=== PATIENT | female | born 1965 | race Two or more races ===

== ENCOUNTER 2022-08-15 15:18 | Inpatient (IN) | payer MEDICAID ==
[~2022-08-15] VITALS: Ht 160 cm; Wt 61.8 kg
[2022-08-15] MEDS ORDERED: ASPirin 325 MG TAB PO ONE (15:30)
[2022-08-15 15:50] LABS: Urine Bacteria FEW /hpf (None Seen); Urine Blood 3+ /uL (Negative); Urine Hyaline Cast FEW /lpf (0 - 2); Urine Mucus FEW (None Seen); Urine Specific Gravity 1.022 (1.001-1.035); Urine WBC 63 /hpf (0 - 5)
[2022-08-15 15:54] LABS: Albumin 4.2 g/dL (3.4-5.0); INR 1.03 (0.9-1.15); Partial Thromboplastin Time 31.7 sec (24.6-33.4); Potassium 3.7 mmol/L (3.5-5.1)
[2022-08-15 15:57] LABS: BUN/Creatinine Ratio 12.2; Total Protein 7.7 g/dL (6.4-8.2)
[2022-08-15 16:19] LABS: Basophils # (auto) 0.1 10 ^3/uL (0-0.2); Basophils % (auto) 0.7 % (0.0-2.0); Eosinophils # (auto) 0 10 ^3/uL (0-0.8); Eosinophils % (auto) 0.4 % (0.0-7.0); Hematocrit 41.5 % (36.0-46.0); Hemoglobin 13.8 g/dL (12.2-16.2); Lymphocytes # (auto) 2.8 10 ^3/uL (0.4-5.4); Lymphocytes % (auto) 37.1 % (10.0-50.0); Mean Corpuscular Hemoglobin 28.5 pg (28.0-32.0); Mean Corpuscular Hgb Conc. 33.4 g/dL (32.0-36.0); Mean Corpuscular Volume 85.4 fL (80.0-100.0); Monocytes # (auto) 0.5 10 ^3/uL (0-1.3); Monocytes % (auto) 7.2 % (0.0-12.0); Neutrophils # (auto) 4.1 10 ^3/uL (1.6-8.6); Neutrophils % (auto) 54.6 % (37.0-80.0); Nucleated Red Blood Cells % 0.1 %; Red Blood Cells 4.86 10^6/uL (4.0-5.20); Red Cell Distribution Width 13.8 % (11.8-14.3); White Blood Cell 7.6 10^3/uL (4.4-10.8)
[2022-08-15] MEDS ORDERED: NITROGLYCERIN 0.4 MG SL TAB SL ONE (16:45)
[2022-08-15] MEDS ORDERED: MORPHINE SULFATE INJ 2 MG/ml SYRG IV ONE (17:30)
[2022-08-15] MEDS ORDERED: ONDANSETRON HCL 4 MG/2 ML VIAL IV ONE (17:30)
[2022-08-15] MEDS ORDERED: IOHEXOL 350 MG/ML 100ML IJ ONE (17:37)
[2022-08-15] MEDS ORDERED: MORPHINE SULFATE 4 MG/ML SYR/VIAL IV PRN (20:30)
[2022-08-15] MEDS ORDERED: ACETAMINOPHEN 325 MG TAB PO PRN (20:30)
[2022-08-15] MEDS ORDERED: ATORVASTATIN 20 MG TAB PO ONE (20:30)
[2022-08-15] MEDS ORDERED: NITROGLYCERIN 0.4 MG SL TAB SL PRN ×2 (20:30)
[2022-08-15] MEDS: MORPHINE SULFATE INJ 2 MG/ml SYRG IV PRN (21:02)
[2022-08-15] MEDS ORDERED: METOPROLOL TARTRATE 25 MG TAB PO SCH (22:00)
[2022-08-15] MEDS: ENOXAPARIN SOD 60 MG/0.6 ML SYRINGE SC SCH (22:46)
[2022-08-16] MEDS: ACETAMINOPHEN 325 MG TAB PO PRN (02:34)
[2022-08-16 05:29] LABS: Basophils # (auto) 0 10 ^3/uL (0-0.2); Basophils % (auto) 0.5 % (0.0-2.0); Eosinophils # (auto) 0 10 ^3/uL (0-0.8); Eosinophils % (auto) 0.7 % (0.0-7.0); Hematocrit 36.7 % (36.0-46.0); Hemoglobin 12.3 g/dL (12.2-16.2); Lymphocytes % (auto) 32.2 % (10.0-50.0); Mean Corpuscular Hemoglobin 28.8 pg (28.0-32.0); Mean Corpuscular Hgb Conc. 33.7 g/dL (32.0-36.0); Mean Corpuscular Volume 85.5 fL (80.0-100.0); Monocytes # (auto) 0.6 10 ^3/uL (0-1.3); Monocytes % (auto) 9.4 % (0.0-12.0); Neutrophils # (auto) 3.5 10 ^3/uL (1.6-8.6); Neutrophils % (auto) 57.2 % (37.0-80.0); Red Blood Cells 4.29 10^6/uL (4.0-5.20); Red Cell Distribution Width 13.8 % (11.8-14.3); White Blood Cell 6.2 10^3/uL (4.4-10.8)
[2022-08-16] MEDS ORDERED: MORPHINE SULFATE 4 MG/ML SYR/VIAL ONE (05:45)
[2022-08-16 05:48] LABS: Albumin 3.5 g/dL (3.4-5.0); Calcium 8.6 mg/dL (8.5-10.1); Magnesium 1.9 mg/dL (1.6-2.6); Potassium 3.4 mmol/L (3.5-5.1)
[2022-08-16] MEDS: MORPHINE SULFATE INJ 2 MG/ml SYRG IV PRN ×2 (05:49→15:11)
[2022-08-16 05:52] LABS: BUN/Creatinine Ratio 14.3; Bilirubin, Total 1.2 mg/dL (0.2-1.0); Total Protein 6.7 g/dL (6.4-8.2)
[2022-08-16] MEDS: ENOXAPARIN SOD 60 MG/0.6 ML SYRINGE SC SCH (09:21)
[2022-08-16] MEDS: cefTRIAXone 1GM/50ML D5W 50 ML IV SCH (09:21)
[2022-08-16] MEDS ORDERED: POTASSIUM CHL 20 Meq TABLET PO ONE (09:30)
[2022-08-16] MEDS ORDERED: MAGNESIUM OXIDE 400 MG TAB PO ONE (09:30)
[2022-08-16] MEDS: LISINOPRIL 5 MG TAB PO SCH (09:44)
[2022-08-16] MEDS: DOCUSATE SOD 100 MG CAP PO SCH (10:00)
[2022-08-16] MEDS ORDERED: ASPirin 325 MG TAB PO SCH (10:00)
[2022-08-16] MEDS: ENOXAPARIN SOD 40 MG/0.4 ML SYRINGE SC SCH (10:07)
[2022-08-16] MEDS: HYDROcodone-ACET 5/325MG TAB PO PRN (21:15)
[2022-08-17] VITALS (7 sets, daily range): BP systolic 138–156; BP diastolic 54–87
[2022-08-17] MEDS: ATORVASTATIN 20 MG TAB PO SCH ×2 (00:12→21:18)
[2022-08-17] MEDS: ACETAMINOPHEN 325 MG TAB PO PRN ×2 (00:20→09:59)
[2022-08-17] MEDS: HYDROcodone-ACET 5/325MG TAB PO PRN ×4 (05:06→22:49)
[2022-08-17] MEDS ORDERED: ADENOSINE 52 MG in GIVE UN-DILUTED 0 ML IV STA (07:31)
[2022-08-17] MEDS: cefTRIAXone 1GM/50ML D5W 50 ML IV SCH (09:00)
[2022-08-17] MEDS: ENOXAPARIN SOD 40 MG/0.4 ML SYRINGE SC SCH (09:58)
[2022-08-17] MEDS: DOCUSATE SOD 100 MG CAP PO SCH (09:58)
[2022-08-17] MEDS: ASPirin 81 mg TAB PO SCH (09:58)
[2022-08-17] MEDS: LISINOPRIL 5 MG TAB PO SCH (09:59)
[2022-08-17] MEDS ORDERED: diphenhdrAMINE HCL 50 MG/1 ML VL IV ONE (11:45)
[2022-08-17] MEDS ORDERED: MAGNESIUM OXIDE 400 MG TAB PO ONE (14:00)
[2022-08-17] MEDS ORDERED: POTASSIUM CHL 20 Meq TABLET PO ONE (14:00)
[2022-08-17] MEDS ORDERED: diphenhdrAMINE HCL 50 MG/1 ML VL IV PRN (14:00)
[2022-08-18 05:00] VITALS: BP 145/75
[2022-08-18 05:36] LABS: Basophils # (auto) 0 10 ^3/uL (0-0.2); Basophils % (auto) 0.2 % (0.0-2.0); Eosinophils # (auto) 0 10 ^3/uL (0-0.8); Eosinophils % (auto) 0.2 % (0.0-7.0); Hematocrit 42.7 % (36.0-46.0); Lymphocytes # (auto) 0.7 10 ^3/uL (0.4-5.4); Lymphocytes % (auto) 9.5 % (10.0-50.0); Mean Corpuscular Hemoglobin 28.1 pg (28.0-32.0); Mean Corpuscular Hgb Conc. 32.7 g/dL (32.0-36.0); Monocytes # (auto) 0.5 10 ^3/uL (0-1.3); Neutrophils # (auto) 6.1 10 ^3/uL (1.6-8.6); Neutrophils % (auto) 83.1 % (37.0-80.0); Nucleated Red Blood Cells % 0.4 %; Red Blood Cells 4.97 10^6/uL (4.0-5.20); White Blood Cell 7.4 10^3/uL (4.4-10.8)
[2022-08-18 06:00] LABS: BUN/Creatinine Ratio 22.7; Calcium 8.8 mg/dL (8.5-10.1); Potassium 4.1 mmol/L (3.5-5.1)
[2022-08-18] MEDS: HYDROcodone-ACET 5/325MG TAB PO PRN (06:09)
[2022-08-18 07:17] LABS: Partial Thromboplastin Time 29.3 sec (24.6-33.4)
[2022-08-18 09:00] VITALS: BP 158/66
[2022-08-18] MEDS: ASPirin 81 mg TAB PO SCH (09:47)
[2022-08-18] MEDS: cefTRIAXone 1GM/50ML D5W 50 ML IV SCH (09:47)
[2022-08-18] MEDS: ENOXAPARIN SOD 40 MG/0.4 ML SYRINGE SC SCH (09:48)
[2022-08-18] MEDS: LISINOPRIL 5 MG TAB PO SCH (09:48)
[2022-08-18] MEDS: DOCUSATE SOD 100 MG CAP PO SCH (09:49)
[2022-08-18] MEDS ORDERED: MORPHINE SULFATE INJ 2 MG/ml SYRG IV ONE (12:00)
[2022-08-18 13:00] VITALS: BP 130/71
[2022-08-18 16:32] VITALS: BP 141/69
[2022-08-18] MEDS ORDERED: ASPI-325 PO (18:14)
[2022-08-18] MEDS ORDERED: ATOR20TA50 PO (18:14)
[2022-08-18] MEDS ORDERED: LISI-275 PO (18:14)
[2022-08-18] MEDS ORDERED: GABA300C10 PO (18:20)
[2022-08-18] MEDS ORDERED: VALA1TAB34 PO (18:20)
[2022-08-18 18:30] VITALS: BP 158/66
[2022-08-18] MEDS ORDERED: GABAPENTIN 300 MG CAP PO ONE (18:30)
== END 2022-08-18 21:03 | disposition home health service (06) | DRG 198 ==
LOC: ER 15:18 → TELE 20:31 → TELE-WESTW 08-16 23:31
PROVIDERS: ADMIT Nurse Practitioner Family; ATTEND Internal Medicine
DX: R07.89 Other chest pain (principal); I25.10 Atherosclerotic heart disease of native coronary artery without angina pectoris; B02.9 Zoster without complications; I10 Essential (primary) hypertension; N39.0 Urinary tract infection, site not specified; Z20.822 Contact with and (suspected) exposure to COVID-19; E78.5 Hyperlipidemia, unspecified; R73.03 Prediabetes; Z90.710 Acquired absence of both cervix and uterus; Z82.49 Family history of ischemic heart disease and other diseases of the circulatory system
CPT/HCPCS: 36415; 71045; 71275; 78452; 80048; 80053; 80061; 81001; 83036; 83735; 84100; 84443; 84484; 85025; 85610; 85730; 87086; 93005; 93017; 93306; 96374; 96375; G0378; J0153; J0696; J2405